=== PATIENT | female | born 1995 | race Caucasian/White ===

== ENCOUNTER → 2022-02-25 | Outpatient (CLI) | payer BC, MEDICAID, OTHER ==
[~2022-02-25] VITALS: Ht 167.6 cm; Wt 102.1 kg
[~2022-02-25] MED LIST: ACETAMINOPHEN 500 MG TAB PO ONE; EXCETAB81 PO; HOME MED LIST COMPLETE! XX SCH; LOVE1INJ SC; MACR100C43 PO; PROZ20CA11 PO; RELP40TA PO
[2022-02-25 12:51] VITALS: BP 106/60
[2022-02-25 15:07] VITALS: BP 106/62
== END ==
LOC: M LDO 12:26
PROVIDERS: ATTEND Obstetrics & Gynecology
DX: O26.893 Other specified pregnancy related conditions, third trimester (principal); R10.30 Lower abdominal pain, unspecified; Z3A.31 31 weeks gestation of pregnancy
CPT/HCPCS: 59025; 81001; 87086; G0463